=== PATIENT | male | born 2000 | race Caucasian/White ===

== ENCOUNTER 2021-03-24 20:59 | Emergency (ER) | payer SELFPAY ==
--- NOTE | 2021-03-24 21:32 | NUR ---
PER [facility] PT LEFT FACILTY WITH PARENTS. PATIENT LEFT WITHOUT BEING SEEN BY DR. JUNIOR. NO FURTHER CARE PROVIDED FOR PATIENT.
== END 2021-03-24 21:32 | disposition left against medical advice (07) ==
LOC: MED 20:59
DX: Z53.21 Procedure and treatment not carried out due to patient leaving prior to being seen by health care provider (principal)